=== PATIENT | male | born 1970 | race Caucasian/White ===

== ENCOUNTER → 2020-07-29 | Outpatient (CLI) | payer MEDICARE, OTHER ==
[~2020-07-29] MED LIST: ASCORBIC ACID500 MG PO; ASPIRIN 325MG325 MG PO; ASPIRIN325 MG PO; ATORVASTATIN CA20 MG PO; BENADRYL 25MG C25 MG PO; CYMBALTA60 MG PO; GLUCOPHAGE1000 MG PO; GLUCOPHAGE500 MG PO; HYDROCODON-ACE1 EAC2 PO; INVOKANA300 MG PO; JARDIANCE25 MG PO; KEFLEX750 MG PO; LOSARTAN POTASS25 MG PO; MELATONIN5 MG PO; OMEPRAZOLE20 M1 PO; PERCOCET 10-321 EACH PO; PHAZYME180 MG PO; TESTOSTERO200 MG/1 M IM; TOPROL XL25 MG PO; TRAZODONE HCL150 MG PO; VITAMIN C500 M2 PO; VOLTAREN EC 7575 MG PO; ZESTRIL40 MG PO
[2020-07-29 12:32] LABS: HEMOGLOBIN 13.8 gm/dl (14.0-17.5); RED BLOOD COUNT 5.45 M/UL (4.20-5.50); WHITE BLOOD COUNT 8.6 K/UL (4.5-11.0)
[2020-07-29 12:53] LABS: BUN/CREATININE RATIO 15 (0-10)
== END ==
LOC: OPSV2 11:15
PROVIDERS: Podiatrist Foot & Ankle Surgery
DX: Z01.812 Encounter for preprocedural laboratory examination (principal)
CPT/HCPCS: 36415; 80048; 83036; 85027; J7030

== ENCOUNTER → 2020-07-31 | Day surgery (SDC) | payer MEDICARE, OTHER ==
[~2020-07-31] VITALS: Ht 180.3 cm; Wt 105.2 kg
== END | disposition home or self-care (01) ==
LOC: OR 06:34
DX: S92.002A Unspecified fracture of left calcaneus, initial encounter for closed fracture (principal); G89.29 Other chronic pain; I10 Essential (primary) hypertension; E11.9 Type 2 diabetes mellitus without complications; E78.5 Hyperlipidemia, unspecified; F17.210 Nicotine dependence, cigarettes, uncomplicated; K21.9 Gastro-esophageal reflux disease without esophagitis; G47.30 Sleep apnea, unspecified; K27.9 Peptic ulcer, site unspecified, unspecified as acute or chronic, without hemorrhage or perforation; K76.0 Fatty (change of) liver, not elsewhere classified; M79.7 Fibromyalgia; F41.8 Other specified anxiety disorders; N20.0 Calculus of kidney; Z79.84 Long term (current) use of oral hypoglycemic drugs; Z20.822 Contact with and (suspected) exposure to COVID-19; Z90.49 Acquired absence of other specified parts of digestive tract
CPT/HCPCS: 73630; 76000; 82962; J0690; J1100; J2001; J2250; J2370; J2405; J2704; J2795; J3010; J3370; J7030; J7120; Q4133

== ENCOUNTER 2020-08-07 16:48 | Emergency (ER) | payer MEDICARE, OTHER | END 2020-08-07 22:46 | disposition home or self-care (01) | LOC: ER1 16:48 | DX: M79.672 Pain in left foot (principal); I10 Essential (primary) hypertension; E11.9 Type 2 diabetes mellitus without complications | CPT/HCPCS: 73630; 99283 ==

== ENCOUNTER → 2020-08-18 | Outpatient (CLI) | payer MEDICARE, OTHER | LOC: EXRD 14:45 | DX: M79.642 Pain in left hand (principal); M79.641 Pain in right hand; M25.842 Other specified joint disorders, left hand; M25.841 Other specified joint disorders, right hand | CPT/HCPCS: 73130 ==

== ENCOUNTER → 2020-09-07 | Outpatient (CLI) | payer MEDICARE, OTHER | LOC: KOH-I 13:52 | DX: S92.002D Unspecified fracture of left calcaneus, subsequent encounter for fracture with routine healing (principal) | CPT/HCPCS: 73630 ==

== ENCOUNTER → 2020-09-21 | Outpatient (CLI) | payer MEDICARE, OTHER | LOC: KOH-I 14:44 | DX: S92.002A Unspecified fracture of left calcaneus, initial encounter for closed fracture (principal) | CPT/HCPCS: 73630 ==

== ENCOUNTER → 2020-10-05 | Outpatient (CLI) | payer MEDICARE, OTHER | LOC: KOH-I 13:41 | DX: S92.002A Unspecified fracture of left calcaneus, initial encounter for closed fracture (principal) | CPT/HCPCS: 73630; 73650 ==

== ENCOUNTER → 2020-10-20 | Outpatient (CLI) | payer MEDICARE, OTHER | LOC: KOH-I 13:31 | DX: S92.022A Displaced fracture of anterior process of left calcaneus, initial encounter for closed fracture (principal); M19.072 Primary osteoarthritis, left ankle and foot | CPT/HCPCS: 73610; 73630 ==

== ENCOUNTER → 2020-11-10 | Outpatient (CLI) | payer MEDICARE, OTHER | LOC: KOH-I 08:54 | DX: S92.002A Unspecified fracture of left calcaneus, initial encounter for closed fracture (principal) | CPT/HCPCS: 73630 ==

== ENCOUNTER → 2020-12-24 | Outpatient (CLI) | payer MEDICARE, OTHER | LOC: KOH-I 14:16 | DX: S92.002A Unspecified fracture of left calcaneus, initial encounter for closed fracture (principal); S92.022D Displaced fracture of anterior process of left calcaneus, subsequent encounter for fracture with routine healing | CPT/HCPCS: 73630 ==

== ENCOUNTER → 2021-01-25 | Outpatient (CLI) | payer MEDICARE, OTHER | LOC: KOH-I 09:56 | DX: S92.002A Unspecified fracture of left calcaneus, initial encounter for closed fracture (principal) | CPT/HCPCS: 73630 ==

== ENCOUNTER → 2021-03-01 | Outpatient (CLI) | payer MEDICARE ==
[~2021-03-01] MED LIST changes: +BENADRYL25 MG PO; +CARAFATE 1 GM TA1 GM PO; +LOSARTAN POTASS50 MG PO; +OMEPRAZOLE20 MG PO; +TOPROL XL50 MG PO; +VITAMIN D21250 MCG PO
== END ==
LOC: KOH-I 13:30
DX: Z01.818 Encounter for other preprocedural examination (principal)
CPT/HCPCS: 93926

== ENCOUNTER → 2021-03-02 | Outpatient (CLI) | payer MEDICARE, OTHER ==
[2021-03-02 12:04] LABS: HEMOGLOBIN 13.5 gm/dl (14.0-17.5); RED BLOOD COUNT 5.17 M/UL (4.20-5.50); WHITE BLOOD COUNT 8.7 K/UL (4.5-11.0)
[2021-03-02 12:23] LABS: BUN/CREATININE RATIO 11 (0-10)
== END ==
LOC: OPSV2 10:15
PROVIDERS: Podiatrist Foot & Ankle Surgery
DX: Z01.818 Encounter for other preprocedural examination (principal); I10 Essential (primary) hypertension; E11.9 Type 2 diabetes mellitus without complications
CPT/HCPCS: 36415; 80048; 85027; 93005

== ENCOUNTER → 2021-03-05 | Day surgery (SDC) | payer MEDICARE, OTHER ==
[~2021-03-05] VITALS: Ht 180.3 cm; Wt 91.6 kg
== END | disposition home or self-care (01) ==
LOC: OR 03-02 11:10
DX: M89.8X7 Other specified disorders of bone, ankle and foot (principal); M24.874 Other specific joint derangements of right foot, not elsewhere classified; M21.961 Unspecified acquired deformity of right lower leg; N40.0 Benign prostatic hyperplasia without lower urinary tract symptoms; I10 Essential (primary) hypertension; E11.9 Type 2 diabetes mellitus without complications; K21.9 Gastro-esophageal reflux disease without esophagitis; M79.643 Pain in unspecified hand; M54.16 Radiculopathy, lumbar region; G89.29 Other chronic pain; G47.30 Sleep apnea, unspecified; E78.5 Hyperlipidemia, unspecified; Z79.84 Long term (current) use of oral hypoglycemic drugs; Z79.899 Other long term (current) drug therapy; M19.90 Unspecified osteoarthritis, unspecified site; Z79.1 Long term (current) use of non-steroidal anti-inflammatories (NSAID); Z96.649 Presence of unspecified artificial hip joint; Z20.822 Contact with and (suspected) exposure to COVID-19
CPT/HCPCS: 73630; 73650; 76000; 82962; C1713; J0690; J1100; J1170; J1885; J2001; J2250; J2370; J2405; J2704; J2795; J3010; J3370; J7030; J7120; Q4133

== ENCOUNTER → 2021-04-08 | Outpatient (CLI) | payer MEDICARE, OTHER | LOC: RAD 08:56 → KOH-I 08:56 | DX: M79.671 Pain in right foot (principal) | CPT/HCPCS: 73630 ==